=== PATIENT | male | born 1985 | race American Indian/Alaskan Native ===

== ENCOUNTER 2021-05-05 08:31 | Emergency (ER) | payer SELFPAY ==
[2021-05-05 08:53] VITALS: BP 168/107
--- NOTE | 2021-05-05 09:18 | Emergency Department Report ---
Minor Respiratory - HPI Chief Complaint: Earache Stated Complaint: CANT HEAR OUT RIGHT EAR Time Seen by Provider: 05/05/21 09:12 Duration: 3 Days Pain Location: Ear Severity: mild Minor Respiratory: Yes Able to Tolerate Fluids, Yes Ear Pain, No Rhinorrhea, No Sore Throat, No Cough, No Sick Contacts, No Hemoptysis, No Chest Pain, No Shortness of Breath, No Fever Other History: Patient is a 36-year-old -Irish male that comes to the ER with right ear pain. He states that he is having difficulty hearing from the ear. He denies any trauma to the ear. He denies fever or chills. He denies cough or congestion. He denies any headaches or sinus congestion or pain. ED Review of Systems ROS: Stated complaint: CANT HEAR OUT RIGHT EAR Other details as noted in HPI Comment: All other systems reviewed and negative ED Past Medical Hx - Past Medical History Hx Hypertension: Yes - Surgical History Past Surgical History?: Yes Additional Surgical History: HERNIA - Family History Family history: no significant - Social History Smoking Status: Current Every Day Smoker Substance Use Type: Alcohol, Marijuana - Medications Home Medications: Home Medications Medication Instructions Recorded Confirmed Last Taken Type Amoxicillin [Trimox CAP] 500 mg PO BID #20 capsule 05/05/21 Unknown Rx Minor Respiratory Exam - Exam General: Vital signs noted. No distress. Alert and acting appropriately. HEENT: Yes Moist Mucous Membranes, No Pharyngeal Erythema, No Pharyngeal Exudates, No Rhinorrhea, No Conjuctival Injection, No Frontal Tenderness, No Maxillary Tenderness Ear: Right TM Bulge, Right TM Erythema, Right EAC Pain, Neither EAC Discharge Neck: Yes Supple, No Adenopathy Lungs: Yes Good Air Exchange, No Wheezes, No Ronchi, No Stridor, No Cough, No Labored Respirations, No Retractions, No Use of Accessory Muscles, No Other Abnormal Lung Sounds Heart: Yes Regular, No Murmur Abdomen: Yes Normal Bowel Sounds, No Tenderness, No Peritoneal Signs Skin: No Rash, No Edema Neurologic: Alert and oriented, no deficits. Musculoskeletal: Unremarkable. ED Course Vital Signs 05/05/21 08:52 Temperature 97.9 F Pulse Rate 84 Respiratory 18 Rate Blood Pressure 168/107 O2 Sat by Pulse 97 Oximetry ED Medical Decision Making - Medical Decision Making OM to the right ear noted. There is no wax or foreign body. Patient being discharged home on amoxicillin. Patient states that he has a history of hypertension. He states that his blood pressure always goes up when he goes to the doctors. I have instructed the patient to monitor his blood pressure and follow-up with primary care if it persistently is high. He denies any headache. He is ambulatory neuro intact in the ER. Patient verbalizes understanding of discharge plan of care including medications, follow-up, activity and diet. Patient is ambulatory, nontoxic [id number] on discharge. Vital Signs 05/05/21 08:52 Temperature 97.9 F Pulse Rate 84 Respiratory 18 Rate Blood Pressure 168/107 O2 Sat by Pulse 97 Oximetry - Differential Diagnosis OE/FB/OM Critical care attestation.: If time is entered above; I have spent that time in minutes in the direct care of this critically ill patient, excluding procedure time. ED Disposition Clinical Impression: Otitis media Disposition: DC-01 TO HOME OR SELFCARE Is pt being admited?: No Does the pt Need Aspirin: No Condition: Stable Instructions: Otitis Media, Adult, [id number] Additional Instructions: NO Q TIPS IN EAR MED ORDERED TODAY MOTRIN OR TYLENOL FOR PAIN FOLLOW UP WITH PCP NEXT WEEK TO BE SURE YOU ARE GETTING BETTER OVER THE COUNTER CERUMENEX TO KEEP EARS CLEAN Prescriptions: Amoxicillin [Trimox CAP] 500 mg PO BID #20 capsule Referrals: KWESI HILTON MD [Staff Physician] - 3-5 Days Time of Disposition: 09:17
== END 2021-05-05 10:00 | disposition home or self-care (01) ==
LOC: ED 08:31
DX: H66.91 Otitis media, unspecified, right ear (principal); I10 Essential (primary) hypertension; F17.200 Nicotine dependence, unspecified, uncomplicated; F12.90 Cannabis use, unspecified, uncomplicated; Z79.899 Other long term (current) drug therapy; Z98.890 Other specified postprocedural states